=== PATIENT | male | born 1940 | race Hispanic/Latino ===

== ENCOUNTER 2017-06-28 09:41 | Day surgery (SDC) | payer MEDICARE ==
[2017-06-22 10:47] VITALS: BMI 30.1
[2017-06-28] MEDS ORDERED: Propofol 10 mg/ml Inj (20 ML) ONE (12:13)
[2017-06-28] MEDS ORDERED: Lidocaine 2% Inj (20ml) ONE (12:20)
[2017-06-28] MEDS ORDERED: Sodium Chloride 0.9% 1,000 ML IV SCH (12:45)
[2017-06-28 13:07] VITALS: PULSE 65
[2017-06-28 13:19] VITALS: RESP 17
[2017-06-28 15:03] VITALS: BP 134/65; TEMP 97.8; O2SAT 95
== END 2017-06-28 14:35 | disposition home or self-care (01) ==
LOC: ENDO 09:41
PROVIDERS: ATTEND Internal Medicine Gastroenterology
DX: K62.1 Rectal polyp (principal); K57.30 Diverticulosis of large intestine without perforation or abscess without bleeding; K64.8 Other hemorrhoids; R13.10 Dysphagia, unspecified; I10 Essential (primary) hypertension; M19.90 Unspecified osteoarthritis, unspecified site; J45.909 Unspecified asthma, uncomplicated; M48.00 Spinal stenosis, site unspecified; M54.30 Sciatica, unspecified side; Z98.49 Cataract extraction status, unspecified eye
CPT/HCPCS: 45380; 88305; J2704; J3010; J7040